=== PATIENT | male | born 1995 | race Caucasian/White ===

== ENCOUNTER 2017-10-06 18:44 | Emergency (ER) | payer SELFPAY ==
--- NOTE | 2017-10-06 19:28 | PDOC ---
Rapid Medical Evaluation Time Seen by Provider: 10/06/17 19:23 Medical Evaluation: I have performed a brief in-person evaluation of this patient. The patient presents with a chief complaint of: left bicep pain since today while boxing Pertinent physical exam findings: possible torn bicep tendon I have ordered the following: nothing. explained to patient no imaging necessary in ER; will have to f/u with Ortho for MRI The patient will proceed to the ED for further evaluation. Discharge Disposition - Diagnosis Biceps muscle strain Qualifiers: Encounter type: initial encounter Laterality: left Qualified Code(s): S46.212A - Strain of muscle, fascia and tendon of other parts of biceps, left arm, initial encounter - Referrals Referrals: Estuardo Rosas MD [Staff Physician] - - Patient Instructions - Post Discharge Activity
[2017-10-06 19:29] VITALS: BP 150/83; PULSE 66; TEMP 98.6; BMI 30.1
[2017-10-06] MEDS ORDERED: KETOROLAC TROMETHAMINE 60 MG/2 ML VIAL IM ONE (20:31)
[2017-10-06] MEDS ORDERED: diazePAM 5 MG TABLET PO ONE (20:31)
--- NOTE | 2017-10-06 20:31 | PDOC ---
History of Present Illness - History of Present Illness Initial Comments: 10/06/17 20:24 CHIEF COMPLAINT: HISTORY OF PRESENT ILLNESS: No recent travel or sick contacts. PAST MEDICAL HISTORY: Denies past medical history FAMILY HISTORY: Denies SOCIAL HISTORY: Lives at home with ____. Occupation: . Denies tobacco, alcohol, illicit drug use. SURGICAL HISTORY: Denies ALLERGIES: No known drug allergies REVIEW OF SYSTEMS General/Constitutional: Denies fever or chills. Denies weakness, weight change. HEENT: Denies change in vision. Denies ear pain or discharge. Denies sore throat. Cardiovascular: Denies chest pain or shortness of breath. Respiratory: Denies cough, wheezing, or hemoptysis. Gastrointestinal: Denies nausea, vomiting, diarrhea or constipation. Denies rectal bleeding. Genitourinary: Denies dysuria, frequency, or change in urination. Musculoskeletal: Denies joint or muscle swelling or pain. Denies neck or back pain. Skin and breasts: Denies rash or easy bruising. Neurologic: Denies headache, vertigo, loss of consciousness, or loss of sensation. Psychiatric: Denies depression or anxiety. Endocrine: Denies increased thirst. Denies abnormal weight change. Hematologic/Lymphatic: Denies anemia, easy bleeding, or history of blood clots. Allergic/Immunologic: Denies hives or skin allergy. Denies latex allergy. PHYSICAL EXAM General Appearance: Well-appearing, appropriately dressed. No apparent distress , no intoxication. HEENT: EOMI, PERRLA, normal ENT inspection, normal voice, TMs normal, pharynx normal. No conjunctival pallor. No photophobia, scleral icterus. Neck: Supple. Trachea midline. No tenderness, rigidity, carotid bruit, stridor , lymphadenopathy, or thyromegaly. Respiratory/Chest: Lungs CTAB. No shortness of breath, chest tenderness, respiratory distress, accessory muscle use. No crackles, rales, rhonchi, stridor , wheezing, dullness Cardiovascular: RRR. S1, S2. No JVD, murmur, bradycardia, tachycardia. Vascular Pulses: Dorsalis-Pedis (R): 2+, Dorsalis-Pedis (L): 2+ Gastrointestinal/Abdominal: Normal bowel sounds. Abdomen soft, non-distended. No tenderness or rebound tenderness. No organomegaly, pulsatile mass, guarding , hernia, hepatomegaly, splenomegaly. Lymphatic: No adenopathy, tenderness. Musculoskeletal/Extremities: Normal inspection. FROM of all extremities, normal capillary refill. Pelvis Stable. No CVA tenderness. No tenderness to extremities, pedal edema, swelling, erythema or deformity. Integumentary: Appropriate color, dry, warm. No cyanosis, erythema, jaundice or rash Neurologic: production leader II-XII intact. Fully oriented, alert. Appropriate mood/affect. Motor strength 5/5. No appreciable EOM palsy, facial droop or sensory deficit. <Carol Mooney - Last Filed: 10/06/17 20:23> - History of Present Illness Initial Comments: Patient is a 21M, with no significant PMHx, who presents with pain to left bicep from boxing. Patient states that he can move his arm but he feels muscle spasms when he flexes arm. He denies pain to the bones. 10/06/17 20:53 10/06/17 23:07 <Bethany Sanchez - Last Filed: 10/06/17 23:07> - General Chief Complaint: Pain Stated Complaint: PAIN Time Seen by Provider: 10/06/17 19:23 Past History - Past Medical History COPD: No Other medical history: Pt denies - Suicide/Smoking/Psychosocial Hx Smoking History: Never smoked Have you smoked in the past 12 months: No Information on smoking cessation initiated: No Hx Alcohol Use: No Drug/Substance Use Hx: No Substance Use Type: None <Carol Mooney - Last Filed: 10/06/17 20:23> <Bethany Sanchez - Last Filed: 10/06/17 23:07> - Past Medical History Allergies/Adverse Reactions: Allergies Allergy/AdvReac Type Severity Reaction Status Date / Time No Known Allergies Allergy Verified 10/06/17 19:26 Home Medications: Ambulatory Orders Diazepam [Valium] 5 mg PO HS #3 tablet MDD 1 10/06/17 Diclofenac Sodium 50 mg PO BID #14 tablet. 10/06/17 Review of Systems - Review of Systems Comments:: 10/06/17 20:53 GENERAL/CONSTITUTIONAL: No fever or chills. No weakness. GASTROINTESTINAL: No nausea, vomiting, diarrhea or constipation. MUSCULOSKELETAL: +musculoskeletal pain to left bicep with movement. No neck or back pain. SKIN: No rash NEUROLOGIC: No headache, vertigo, loss of consciousness, or change in strength/ sensation. <Bethany Sanchez - Last Filed: 10/06/17 23:07> *Physical Exam - Vital Signs Last Vital Signs Temp Pulse Resp BP Pulse Ox 98.6 F 66 18 150/83 96 10/06/17 19:26 10/06/17 19:26 10/06/17 19:26 10/06/17 19:26 10/06/17 19:26 <Carol Mooney - Last Filed: 10/06/17 20:23> - Vital Signs Last Vital Signs Temp Pulse Resp BP Pulse Ox 98.6 F 66 18 150/83 96 10/06/17 19:26 10/06/17 19:26 10/06/17 19:26 10/06/17 19:26 10/06/17 19:26 - Physical Exam Comments: 10/06/17 20:54 GENERAL: Awake, alert, and fully oriented, in no acute distress HEAD: No signs of trauma EYES: PERRLA, EOMI, sclera anicteric, conjunctiva clear LUNGS: Breath sounds equal, clear to auscultation bilaterally. No wheezes, and no crackles ABDOMEN: Soft, nontender, normoactive bowel sounds. No guarding, no rebound. No masses EXTREMITIES: FROM of left arm. Mild tenderness to palpation of left bicep. Pain elicited with flexion of left arm. No edema. No clubbing or cyanosis. No erythema. NEUROLOGICAL: Cranial nerves II through XII grossly intact. Normal speech, normal gait SKIN: Warm, Dry, normal turgor, no rashes or lesions noted. <Bethany Sanchez - Last Filed: 10/06/17 23:07> ED Treatment Course - Medications Given in the ED: ED Medications Discontinued Medications Generic Name Dose Route Start Last Admin Trade Name Freq PRN Reason Stop Dose Admin Diazepam 5 mg 10/06/17 20:31 10/06/17 20:42 Valium - PO 10/06/17 20:32 Not Given ONCE ONE Ketorolac Tromethamine 60 mg 10/06/17 20:31 10/06/17 20:42 Toradol Injection - IM 10/06/17 20:32 60 mg ONCE ONE Administration <Bethany Sanchez - Last Filed: 10/06/17 23:07> Medical Decision Making - Medical Decision Making 10/06/17 20:56 Patient is a 21M who presents with pain to left bicep from boxing. Patient states that he can move his arm but he feels muscle spasms when he flexes arm. Toradol 60 mg IM Sling applied to affected arm. 5 mg of Valium given. Advised patient to take medication as prescribed. Follow up with orthopedic if pain persists for more than 3 days. Advised patient to return to the ER if pain persists. 10/06/17 23:07 <Bethany Sanchez - Last Filed: 10/06/17 23:07> *DC/Admit/Observation/Transfer - Discharge Dispostion Admit: No <Carol Mooney - Last Filed: 10/06/17 20:23> <Bethany Sanchez - Last Filed: 10/06/17 23:07> Diagnosis at time of Disposition: Biceps muscle strain Qualifiers: Encounter type: initial encounter Laterality: left Qualified Code(s): S46.212A - Strain of muscle, fascia and tendon of other parts of biceps, left arm, initial encounter - Discharge Dispostion Disposition: HOME Condition at time of disposition: Stable - Prescriptions Prescriptions: Diazepam [Valium] 5 mg PO HS #3 tablet MDD 1 Diclofenac Sodium 50 mg PO BID #14 tablet.dr - Referrals Referrals: Estuardo Rosas MD [Staff Physician] - - Patient Instructions Printed Discharge Instructions: How to Use a Sling Additional Instructions: Please take medication as prescribed, do NOT drive, drink alcohol, or operate machinery while taking Valium. As discussed, if your symptoms do not improve in 2-3, please follow up with orthopedics for further evaluation and a possible MRI or physical therapy. If you experience any loss of sensation to your extremities, any swelling or increased pain to your arm, please return to the ER. - Post Discharge Activity Forms/Work/School Notes: Back to Work
[2017-10-06] MEDS ORDERED: diazePAM 5 MG TABLET ONE (20:32)
[2017-10-06] MEDS ORDERED: KETOROLAC TROMETHAMINE 60 MG/2 ML VIAL ONE (20:32)
== END 2017-10-06 20:58 | disposition home or self-care (01) ==
LOC: JERFT 18:44
PROC: 3E0233Z Introduction of Anti-inflammatory into Muscle, Percutaneous Approach (ICD-10-PCS; principal; 2017-10-06)
DX: S46.212A Strain of muscle, fascia and tendon of other parts of biceps, left arm, initial encounter (principal); X50.0XXA Overexertion from strenuous movement or load, initial encounter; Y93.71 Activity, boxing; Y92.39 Other specified sports and athletic area as the place of occurrence of the external cause; Y99.8 Other external cause status
CPT/HCPCS: 99281-25

== ENCOUNTER 2017-10-21 11:57 | Day surgery (SDC) | payer OTHER ==
[2017-10-21 10:02] VITALS: BMI 29.5
[2017-10-21] MEDS ORDERED: MEPIVACAINE HCL/PF 1% 30 ML VIAL ONE (13:16)
[2017-10-21] MEDS ORDERED: MIDAZOLAM HCL 2 MG/2 ML SINGLE DOSE VIAL ONE (13:17)
[2017-10-21] MEDS ORDERED: BUPIVACAINE HCL/PF (5 MG/ML) 30 ML VIAL IJ ONE (13:17)
[2017-10-21] MEDS ORDERED: DEXAMETHASONE SOD PHOSPHATE/PF 10 MG/ML SDV ONE (13:17)
[2017-10-21] MEDS ORDERED: DEXAMETHASONE SOD PHOSPHATE 4 MG/1 ML VIAL ONE (13:46)
[2017-10-21] MEDS ORDERED: ceFAZolin SODIUM 1 GM VIAL ONE (13:46)
[2017-10-21] MEDS ORDERED: ONDANSETRON 4 MG/2 ML VIAL ONE (13:46)
[2017-10-21] MEDS ORDERED: SUCCINYLCHOLINE CHLORIDE 200 MG/10 ML VIAL ONE (13:47)
[2017-10-21] MEDS ORDERED: PROPOFOL 20 ML ONE (13:47)
[2017-10-21] MEDS ORDERED: GUM MASTIC/STORAX/MSAL/ALCOHOL 1 DRP DROPSBTL MC ONE (14:56)
[2017-10-21] MEDS ORDERED: ONDANSETRON 4 MG/2 ML VIAL IVPUSH PRN (15:04)
[2017-10-21] MEDS ORDERED: oxyCODONE HCL 5 MG TABLET PO PRN (15:05)
[2017-10-21] MEDS ORDERED: LACTATED RINGERS SOLUTION 1,000 ML IV SCH (15:15)
[2017-10-21] MEDS ORDERED: KETOROLAC TROMETHAMINE 30 MG/1 ML VIAL IVPUSH ONE ×2 (15:22→15:30)
[2017-10-21 15:52] VITALS: BP 144/62; PULSE 57; TEMP 98
--- NOTE | 2017-10-22 14:37 | OP ---
DATE OF OPERATION: 10/21/2017 PREOPERATIVE DIAGNOSIS: Left distal biceps rupture. POSTOPERATIVE DIAGNOSIS: Left distal biceps rupture. OPERATIVE PROCEDURE: Left distal biceps repair. SURGEON: Chris Grider MD MACHINE STONE POLISHER: STONE Dunlap ANESTHESIA: Regional. COMPLICATIONS: None. ESTIMATED BLOOD LOSS: Minimal. INDICATION FOR PROCEDURE: The patient is a 21-year-old male with the above finding indicated for operative treatment. Risks, benefits, and alternatives were discussed with the patient at length. Proper informed consent was obtained. PROCEDURE: After proper identification of the patient and the correct operative site, patient was brought to the operating room and placed supine on the operating table. Prominences were well padded. Regional anesthesia with sedation was given by the anesthesiologist and adequate for the procedure. Intravenous antibiotics were given. Timeout procedure was performed. Left upper extremity was prepped and draped in usual sterile fashion. A well-padded tourniquet was placed as well as sterile prep. Esmarch bandage to exsanguinate the left upper extremity. Tourniquet was inflated to 250 mmHg. Transverse incision was made just distal to the antecubital fossa crease. The incision was taken sharply through the skin, with blunt and sharp dissection through the subcutaneous tissues. , the brachial cutaneous nerve was carefully protected. Distal biceps tendon was found to be coiled at the level of the antecubital fossa and was brought back into the field and prepared for reinsertion. This was whip-stitched with a number 2 FiberWire suture. Blunt finger dissection was performed down to the radial tuberosity, and a guidewire was placed into the radial tuberosity. This was then over-reamed with an 8-mm reamer, and the tendon was repaired into the socket using an Arthrex biceps button tension-slide technique. This was then backed up with a 7-mm BioComposite Arthrex Bio-Tenodesis screw. This provided secure stable fixation with full range of motion and no tension on the repair. Wound was irrigated with saline and repaired in layers using a 4-0 Vicryl and 4-0 Monocryl suture. Steri-Strips, sterile dressings were applied. Sling was placed. Patient was reversed from anesthesia and brought to Recovery in stable condition. He tolerated the procedure well. Natanael Cantrell, the certified pathology assistant, was integral throughout the procedure. Procedure could not have been performed without a skilled operative certified pathology assistant. Valdo [id number]
== END 2017-10-21 16:37 | disposition home or self-care (01) ==
LOC: FASU 11:57
PROVIDERS: ATTEND Orthopaedic Surgery Hand Surgery
PROC: 0LM40ZZ Reattachment of Left Upper Arm Tendon, Open Approach (ICD-10-PCS; principal; 2017-10-21 14:30)
DX: S46.212A Strain of muscle, fascia and tendon of other parts of biceps, left arm, initial encounter (principal); X58.XXXA Exposure to other specified factors, initial encounter; Y93.9 Activity, unspecified; Y92.9 Unspecified place or not applicable
CPT/HCPCS: 94760

== ENCOUNTER 2020-10-28 22:29 | Emergency (ER) | payer OTHER ==
[2020-10-28 22:37] VITALS: BP 140/78; PULSE 83; TEMP 98.1; BMI 70.4
== END 2020-10-29 00:06 | disposition home or self-care (01) ==
LOC: JER 22:29
DX: J30.2 Other seasonal allergic rhinitis (principal)
CPT/HCPCS: 99283-25